=== PATIENT | female | born 1935 | race Two or more races ===

== ENCOUNTER 2019-04-09 11:30 | Inpatient (IN) | payer OTHER ==
[~2019-04-09] VITALS: Ht 160 cm; Wt 57.2 kg
[2019-04-10] MEDS ORDERED: IRBESARTAN-HCT1 EACH PO (14:02)
[2019-04-10] MEDS ORDERED: LEVO-T25 MCG PO (14:02)
[2019-04-10] MEDS ORDERED: ACID REDUCER20 M1 PO (14:02)
[2019-04-10] MEDS ORDERED: SERTRALINE20 MG/1 ML PO (14:02)
[2019-04-10] MEDS ORDERED: LEVSIN0.125 MG PO (14:03)
[2019-04-10] MEDS ORDERED: INTESTINEX680 M1 PO (14:03)
[2019-04-10] MEDS ORDERED: ARICEPT10 MG PO (14:03)
[2019-04-10] MEDS ORDERED: CLARITIN-D 241 EACH PO (14:03)
[2019-04-10] MEDS ORDERED: DICYCLOMIN10 MG/5 M1 PO (14:04)
[2019-04-10] MEDS ORDERED: VITAMIN D310000 UNIT PO (14:04)
[2019-04-12] MEDS ORDERED: ZOLOFT100 MG PO (09:24)
[2019-04-12] MEDS ORDERED: DICYCLOMINE HCL20 MG PO (09:27)
[2019-04-18] MEDS ORDERED: LEVSIN0.125 MG PO (08:42)
[2019-04-18] MEDS ORDERED: AMOX1TAB5 PO (08:43)
[2019-04-18] MEDS ORDERED: DICLOFENAC SODI75 MG PO (08:44)
[2019-04-18] MEDS ORDERED: RECTICARE30 GM TOP (08:45)
== END 2019-04-18 11:50 | disposition home or self-care (01) | DRG 394 ==
LOC: SURG 04-12 06:00 → O/R 04-12 06:00 → SURH 04-12 08:30 → SURG 04-12 12:16 → SURH 04-12 12:30 → SURG 04-16 14:02
PROVIDERS: ADMIT Surgery
PROC: 4A033R1 Measurement of Arterial Saturation, Peripheral, Percutaneous Approach (ICD-10-PCS; 2019-04-12)
PROC: 0DBP8ZZ Excision of Rectum, Via Natural or Artificial Opening Endoscopic (ICD-10-PCS; principal; 2019-04-12 08:30)
PROC: 4A12X4Z Monitoring of Cardiac Electrical Activity, External Approach (ICD-10-PCS; 2019-04-13)
PROC: 30233N1 Transfusion of Nonautologous Red Blood Cells into Peripheral Vein, Percutaneous Approach (ICD-10-PCS; 2019-04-15)
PROC: 02HV33Z Insertion of Infusion Device into Superior Vena Cava, Percutaneous Approach (ICD-10-PCS; 2019-04-15)
DX: K62.3 Rectal prolapse (principal); D62 Acute posthemorrhagic anemia; J90 Pleural effusion, not elsewhere classified; E87.6 Hypokalemia; M62.81 Muscle weakness (generalized); R19.5 Other fecal abnormalities; K63.89 Other specified diseases of intestine; I11.9 Hypertensive heart disease without heart failure; E03.8 Other specified hypothyroidism; G47.33 Obstructive sleep apnea (adult) (pediatric)